=== PATIENT | female | born 1955 | race Caucasian/White ===

== ENCOUNTER 2016-09-30 15:43 | Emergency (ER) | payer OTHER ==
[~2016-09-30] VITALS: Ht 170.2 cm; Wt 91.7 kg
[~2016-09-30 15:43] MED LIST: CIPR500T2 PO; CYMB60CA PO; LISI-360 PO; LORTA5 PO; METR-1 PO; PREM0.622 PO; VESI5TAB PO
[2016-09-30 15:45] VITALS: BP 232/118; PULSE 71; RESP 16; RESP 18; TEMP 98; O2SAT 100; O2SAT 98
[2016-09-30] MEDS ORDERED: SODIUM CHLORIDE 0.9% FLUSH 10 ML FLUSH IV FLUSH PRN (16:00)
[2016-09-30] MEDS ORDERED: ONDANSETRON HCL 4 MG/2 ML VIAL IVP ONE (16:00)
[2016-09-30] MEDS ORDERED: MORPHINE SULFATE 4 MG/ML INJ IV PUSH ONE (16:00)
--- NOTE | 2016-09-30 16:02 | PD ---
HPI Chief Complaint: FALL Time Seen by Provider: 16:02 Travel History International Travel<30 days: No Contact w/Intl Traveler<30days: No History of Present Illness HPI 61-year-old female with a history of hypertension is brought to the emergency department by EMS for evaluation of fall with head trauma. Per EMS report the patient slipped in her kitchen falling backward and hitting her head with loss of consciousness witnessed by family members. The patient states that she had just put tanning lotion on and was getting ready to do yard work outside when she slipped on the tile in her kitchen and fell back hitting her head. States that she remembers hitting her head hard on the tile and blacked out. Per report it was a loss of consciousness for approximately 2 minutes. The patient is complaining of posterior head and neck pain as well as bilateral toe pain. States she was wearing flip-flops when this occurred and that she thinks her toes accidentally got folded downward. She is complaining of shoulder soreness bilaterally. Denies numbness or tingling, weakness, blurred vision, nausea, vomiting, back pain, saddle anesthesia, bowel or bladder incontinence. Denies anticoagulation. No other complaints. PFSH Past Medical History Arthritis: Yes Blood Disorders: No Anxiety: Yes Depression: No Cancer: No Cardiovascular Problems: No Chemotherapy: No Diminished Hearing: No Endocrine: Yes (PARATHYROID BEING ADDRESSED) Glaucoma: No Genitourinary: No Hypertension: Yes Immune Disorder: No Implanted Vascular Access Dvce: Yes Musculoskeletal: Yes ( ) Neurologic: No Psychiatric: Yes (CLAUSTRAPHOBIA) Reproductive: No Respiratory: No Radiation Therapy: No Ovarian Cysts: Yes Tubal Ligation: Yes Past Surgical History Abdominal Surgery: Yes AICD: No Arteriovenous Shunt: No Body Medical Devices: LUMBAR HARDWARE Cardiac Surgery: No Ear Surgery: No Eye Surgery: No Genitourinary Surgery: No Gynecologic Surgery: Yes (TUBAL LIG., HYSTERECTOMY) Hysterectomy: Yes Insulin Pump: No Joint Replacement: Yes (KNEE) Neurologic Surgery: Yes (LUMBAR FUSION) Oral Surgery: No Pacemaker: No Thoracic Surgery: No Other Surgery: Yes (MULTI-LEVEL FUSION BACK SURGERY - DECEMBER [address] KIM) Social History Alcohol Use: Yes (3 TIMES A WEEK) Tobacco Use: No Substance Use: No Allergies-Medications (Allergen,Severity, Reaction): Coded Allergies: Dust (Verified Allergy, Unknown, 04/16/15) Molds and Smuts (Verified Allergy, Unknown, 04/16/15) Uncoded Allergies: DHAVAL (Allergy, Intermediate, 03/27/11) Reported Meds & Prescriptions Reported Meds & Active Scripts Active Naproxen 500 Mg Tab 500 Mg PO BID PRN 7 Days Robaxin (Methocarbamol) 750 Mg Tab 750 Mg PO QID 5 Days Flagyl (Metronidazole) 500 Mg Tab 500 Mg PO Q8HR Ciprofloxacin Hcl 500 Mg Tab 500 Mg PO Q12HR Hydrocodone/Acetaminophen 5 mg/325 mg 1 Tab Tab 1 Tab PO Q4H PRN Reported Lisinopril 10 mg (Lisinopril) 10 Mg Tab 1 Tab PO BID Premarin (Estrogens Conjugated) 0.625 Mg Tab 0.625 Mg PO DAILY Vesicare (Solifenacin) 5 Mg Tab 5 Mg PO BID * SWALLOW TABLET WHOLE * Cymbalta (Duloxetine HCl) 60 Mg Cap 60 Mg PO DAILY Review of Systems Except as stated in HPI: all other systems reviewed are Neg Physical Exam Narrative GENERAL: Well-nourished and well-developed pleasant female patient in no acute distress. Backboarded with cervical collar in place. SKIN: No obvious lacerations or abrasions noted. HEAD: Normocephalic and atraumatic. No bony point tenderness or crepitus noted throughout the scalp and facial bones. EYES: No scleral icterus, injection, or drainage. PERRLA. EOMI. No hyphema present. ENT: No septal hematoma or hemotympanum noted. Oropharynx is clear and the airway is patent. NECK: Supple and the trachea is midline. No obvious deformities, crepitus, or midline tenderness noted. CARDIOVASCULAR: Regular rate and rhythm. RESPIRATORY: Breath sounds are equal bilaterally with no accessory muscle use, wheezing, rhonchi, or crackles. GASTROINTESTINAL: Abdomen is soft, non-tender, and nondistended. MUSCULOSKELETAL: Tenderness to palpation of bilateral first and second toes. DP pulses are 2+ bilaterally. Capillary refills within normal limits. No obvious deformities, swelling, cyanosis, or ecchymosis is present throughout the upper and lower extremities. Patient has full range of motion without any signs of neurovascular compromise. Strength 5/5 upper and lower extremities equal bilaterally. BACK: Nontender without any obvious deformities, bony point tenderness, or crepitus noted throughout the thoracic and lumbar vertebrae. NEUROLOGICAL: Awake, alert, and oriented. Normal speech and gait. Cranial nerves are grossly intact. Data Data Last Documented VS Vital Signs Date Time Temp Pulse Resp B/P Pulse Ox O2 Delivery O2 Flow Rate FiO2 09/30/16 16:46 16 09/30/16 16:15 70 193/100 100 Room Air 09/30/16 15:[address] Brain W/O Iv Contrast(Rout) (09/30/16 16:00) Ct Cerv Spine W/O Contrast (09/30/16 16:00) Foot, Complete (Bit5fpn) (09/30/16 16:00) Foot, Complete ([id number]) (09/30/16 16:00) Iv Access Insert/Monitor (09/30/16 16:00) Ecg Monitoring (09/30/16 16:00) Oximetry (09/30/16 16:00) Ondansetron Inj (Zofran Inj) (09/30/16 16:00) Sodium Chloride 0.9% Flush (Ns Flush) (09/30/16 16:00) Morphine Inj (Morphine Inj) (09/30/16 16:00) Basic Metabolic Panel (Bmp) (09/30/16 16:00) Complete Blood Count With Diff (09/30/16 16:00) Prothrombin Time / Inr (Pt) (09/30/16 16:00) Act Partial Throm Time (Ptt) (09/30/16 16:00) Labs Laboratory Tests Test 09/30/16 16:00 White Blood Count 6.9 TH/MM3 Red Blood Count 3.82 MIL/MM3 Hemoglobin 12.8 GM/DL Hematocrit 36.5 % Mean Corpuscular Volume 95.4 FL Mean Corpuscular Hemoglobin 33.4 PG Mean Corpuscular Hemoglobin 35.0 % Concent Red Cell Distribution Width 13.5 % Platelet Count 182 TH/MM3 Mean Platelet Volume 8.7 FL Neutrophils (%) (Auto) 62.4 % Lymphocytes (%) (Auto) 30.1 % Monocytes (%) (Auto) 6.7 % Eosinophils (%) (Auto) 0.5 % Basophils (%) (Auto) 0.3 % Neutrophils # (Auto) 4.3 TH/MM3 Lymphocytes # (Auto) 2.1 TH/MM3 Monocytes # (Auto) 0.5 TH/MM3 Eosinophils # (Auto) 0.0 TH/MM3 Basophils # (Auto) 0.0 TH/MM3 CBC Comment DIFF FINAL Differential Comment Prothrombin Time 10.6 SEC Prothromb Time International 1.0 RATIO Ratio Activated Partial 26.3 SEC Thromboplast Time Sodium Level 139 MEQ/L Potassium Level 4.0 MEQ/L Chloride Level 105 MEQ/L Carbon Dioxide Level 25.3 MEQ/L Anion Gap 9 MEQ/L Blood Urea Nitrogen 14 MG/DL Creatinine 0.80 MG/DL Estimat Glomerular Filtration 73 ML/MIN Rate Random Glucose 91 MG/DL Calcium Level 8.5 MG/DL [facility] [place] Medical Decision Making Medical Screen Exam Complete: Yes Emergency Medical Condition: Yes Differential Diagnosis Minor head injury versus scalp contusion versus intracranial hemorrhage versus muscle strain versus spasm versus fracture Narrative Course 61-year-old female presents to the emergency department for evaluation of fall with head injury and loss of consciousness. Patient is afebrile. She is initially hypertensive with a blood pressure of 232/118. IV access is obtained , labs drawn and sent. Patient is placed on cardiac telemetry and pulse oximetry monitoring. Patient is administered morphine 2.5 mg IV for pain. Head CT is negative for any acute abnormalities. CT of the cervical spine is negative for any acute abnormalities. X-ray of the feet bilaterally are negative for any acute abnormalities. Labs are unremarkable. Patient's blood pressure is improved to 198/86. She reports improvement of symptoms. She has remained stable and without complaint while here in the emergency department. Patient is given prescriptions for Robaxin and naproxen. She is stable for discharge home. I discussed the case with my attending physician Dr. Vargas who is aware of the patients history, physical examination findings, and treatment plan. Diagnosis Primary Impression: Minor head injury with loss of consciousness Qualified Code: S06.9X1A - Minor head injury with loss of consciousness, with LOC of 30 min or less, initial encounter Additional Impression: Foot contusion Qualified Code: S90.31XA - Contusion of right foot, initial encounter Referrals: Primary Care Physician Patient Instructions: Contusion in Adults (ED), General Instructions, Head Injury (ED) Additional Instructions: Apply ice for 20 minutes on, 20 minutes off. Take medications as prescribed. Follow-up with your Primary Care Physician. Return to the ED for any acute worsening of symptoms. Med/Other Pt SpecificInfo: Prescription(s) given Scripts Naproxen 500 Mg [id number] Mg PO BID PRN (PAIN SCALE 1 TO 10) 7 Days Ref 0 Prov:Jem Vargas MD 09/30/16 Methocarbamol (Robaxin)750 Mg [id number] Mg PO QID 5 Days Ref 0 Prov:Jem Vargas MD 09/30/16 Disposition: 01 DISCHARGE HOME Condition: Stable Regine Hi Sep 30, 2016 16:02
[2016-09-30 16:15] VITALS: BP 193/100; PULSE 70; RESP 16; O2SAT 100
--- NOTE | 2016-09-30 16:28 | RADRPT ---
EXAM DATE/TIME: 09/30/2016 16:15 [facility] COMPARISON: No previous studies available for comparison. INDICATIONS : Fall today, cephalgia. RADIATION DOSE: 39.64 CTDIvol (mGy) MEDICAL HISTORY : Hypertension. SURGICAL HISTORY : Hysterectomy. ENCOUNTER: Initial ACUITY: 1 day PAIN SCALE: 7/10 LOCATION: Bilateral head TECHNIQUE: Multiple contiguous axial images were obtained of the head. Using automated exposure control and adj ustment of the mA and/or kV according to patient size, radiation dose was kept as low as reasonably a chievable to obtain optimal diagnostic quality images. FINDINGS: CEREBRUM: The ventricles are normal for age. There is bilateral cortical atrophy overlying the frontal lobes. N o evidence of midline shift, mass lesion, hemorrhage or acute infarction. No extra-axial fluid colle ctions are seen. POSTERIOR FOSSA: The cerebellum and brainstem are intact. The 4th ventricle is midline. The cerebellopontine angle i s unremarkable. EXTRACRANIAL: The visualized portion of the orbits is intact. SKULL: The calvaria is intact. No evidence of skull fracture. CONCLUSION: 1. Bilateral cortical atrophy overlying the frontal lobes. 2. No acute intracranial pathology. Manpreet Lama MD on September 30, 2016 at 16:26 Board Certified Radiologist. This report was verified electronically.
[2016-09-30 16:30] LABS: AUTOMATED NEUTROPHIL # 4.3 TH/MM3 (1.8-7.7); BASOPHIL % 0.3 % (0.0-2.0); EOSINOPHIL % 0.5 % (0.0-4.0); HEMATOCRIT 36.5 % (35.0-46.0); HEMO FLAGS DIFF FINAL; LYMPH % 30.1 % (9.0-44.0); LYMPHOCYTE # 2.1 TH/MM3 (1.0-4.8); MEAN CELL VOLUME 95.4 FL (80.0-100.0); MEAN CORPUSCULAR HEMOGLOBIN 33.4 PG (27.0-34.0); MONO % 6.7 % (0.0-8.0); NEUT % 62.4 % (16.0-70.0); PLATELET COUNT 182 TH/MM3 (150-450); RED BLOOD COUNT 3.82 MIL/MM3 (4.00-5.30); RED CELL DISTRIBUTION WIDTH 13.5 % (11.6-17.2); WHITE BLOOD COUNT 6.9 TH/MM3 (4.0-11.0)
[2016-09-30 16:40] LABS: APTT (PATIENT) 26.3 SEC (24.3-30.1); PROTHROMBIN TIME - PATIENT 10.6 SEC (9.8-11.6)
--- NOTE | 2016-09-30 16:58 | RADRPT ---
EXAM DATE/TIME: 09/30/2016 16:23 [place] Corrected on: September 30, 2016; [facility] COMPARISON: No previous studies available for comparison. INDICATIONS : Patient slipped and fell today. Complains of medial right foot pain near 1st and 2nd metatarsals. MEDICAL HISTORY : None. SURGICAL HISTORY : None. ENCOUNTER: Initial ACUITY: 1 day PAIN SCORE: 4/10 LOCATION: Right Foot FINDINGS: Three view examination of the right foot demonstrates no soft tissue swelling, dislocation, or fractu re. The tarsal bones appear intact. The interphalangeal and metatarsophalangeal joints are intact. The calcaneus is intact. Bony mineralization is normal. There is some calcifications in the soft t issues just below the calcaneus. CONCLUSION: No acute disease. Manpreet Lama MD on September 30, 2016 at 16:56 Board Certified Radiologist. This report was verified electronically. Manpreet Lama MD on September 30, 2016 at 16:59 Board Certified Radiologist. This report was verified electronically.
--- NOTE | 2016-09-30 16:58 | RADRPT ---
EXAM DATE/TIME: 09/30/2016 16:15 [facility] COMPARISON: No previous studies available for comparison. INDICATIONS : Fall today, neck pain. RADIATION DOSE: 18.67 CTDIvol (mGy) MEDICAL HISTORY : Hypertension. SURGICAL HISTORY : Hysterectomy. ENCOUNTER: Initial ACUITY: 1 day PAIN SCALE: 7/10 LOCATION: Bilateral neck TECHNIQUE: Volumetric scanning of the cervical spine was performed. Multiplanar reconstructions in the sagittal, coronal and oblique axial planes were performed. Using automated exposure control and adjustment o f the mA and/or kV according to patient size, radiation dose was kept as low as reasonably achievable to obtain optimal diagnostic quality images. FINDINGS: VERTEBRAE: Normal vertebral body height. No acute bony fracture. There are degenerative changes at C5-6 and C6-7 with disc space narrowing. ALIGNMENT: No evidence of subluxation. C2-C3: The bony spinal canal is normal in size. No evidence of disc bulge or herniation. The neural forami na are bilaterally patent. C3-C4: The bony spinal canal is normal in size. No evidence of disc bulge or herniation. The neural forami na are bilaterally patent. Facet arthritis on the left. C4-C5: The bony spinal canal is normal in size. No evidence of disc bulge or herniation. The neural forami na are bilaterally patent. Facet arthritis on the right. C5-C6: Broad-based bulging with disc osteophyte complex. The neural foramina are patent. C6-C7: The bony spinal canal is normal in size. No evidence of disc bulge or herniation. The neural forami na are bilaterally patent. C7-T1: The bony spinal canal is normal in size. No evidence of disc bulge or herniation. The neural forami na are bilaterally patent. Facet arthritis on the right. CONCLUSION: 1. No acute bony fracture. 2. Primary bony degenerative changes, disc degeneration and disc space narrowing at C5-6 and C6-7. Manpreet Lama MD on September 30, 2016 at 16:53 Board Certified Radiologist. This report was verified electronically.
--- NOTE | 2016-09-30 16:59 | RADRPT ---
EXAM DATE/TIME: 09/30/2016 16:25 [facility] COMPARISON: No previous studies available for comparison. INDICATIONS : Patient slipped and fell today. Complains of medial left foot pain near 1st and 2nd metatarsals. MEDICAL HISTORY : None. SURGICAL HISTORY : None. ENCOUNTER: Initial ACUITY: 1 day PAIN SCORE: 4/10 LOCATION: Left Foot FINDINGS: Three view examination of the left foot demonstrates no soft tissue swelling, dislocation, or fractur e. The tarsal bones appear intact. The interphalangeal and metatarsophalangeal joints are intact. The calcaneus is intact. Bony mineralization is normal. There is some calcifications in the soft ti ssues just below the calcaneus. CONCLUSION: No acute fracture or joint dislocation. Manpreet Lama MD on September 30, 2016 at 16:57 Board Certified Radiologist. This report was verified electronically.
[2016-09-30 17:00] VITALS: BP 193/96; PULSE 86; RESP 16; O2SAT 100
[2016-09-30 17:02] LABS: BICARBONATE 25.3 MEQ/L (21.0-32.0)
[2016-09-30] MEDS ORDERED: ROBA750T PO (17:20)
[2016-09-30] MEDS ORDERED: NAPR500T PO (17:20)
== END 2016-09-30 17:51 | disposition home or self-care (01) ==
LOC: NEPC 15:43
DX: S06.9X1A Unspecified intracranial injury with loss of consciousness of 30 minutes or less, initial encounter (principal); S90.31XA Contusion of right foot, initial encounter; I10 Essential (primary) hypertension; W01.0XXA Fall on same level from slipping, tripping and stumbling without subsequent striking against object, initial encounter; Y92.000 Kitchen of unspecified non-institutional (private) residence as the place of occurrence of the external cause
CPT/HCPCS: 70450; 72125; 73630; 80048; 85025; 85610; 85730; 96374; 96375; 99284; J2270; J2405

== ENCOUNTER 2017-03-27 20:03 | Emergency (ER) | payer OTHER ==
[~2017-03-27] VITALS: Ht 170.2 cm; Wt 82.0 kg
[~2017-03-27 20:03] MED LIST changes: +NAPR500T PO; +ROBA750T PO
[2017-03-27 20:06] VITALS: BP 153/87; PULSE 101; RESP 20; TEMP 97.9; O2SAT 98
[2017-03-27] MEDS ORDERED: SODIUM CHLORIDE 0.9% FLUSH 10 ML FLUSH IV FLUSH PRN (21:00)
--- NOTE | 2017-03-27 21:18 | PD ---
HPI . Abdominal swelling Chief Complaint: Abdominal Pain Time Seen by Provider: 20:49 Travel History International Travel<30 days: No Contact w/Intl Traveler<30days: No Traveled to known affect area: No History of Present Illness HPI This patient presents with chief complaint of a swollen abdomen. Onset was this morning. She states she had a little bit of abdominal discomfort last night and that the swelling started today. She states that it has been getting progressively worse. She is unable to fasten her parents and due to the swelling. She does have some associated discomfort. She rates her pain 10/10 but states that it is markedly improved from earlier. She states that she took hydrocodone good relief of her pain. Pain is exacerbated by patient and by fastening her pants. She reports an associated poor appetite today but otherwise has no associated symptoms. Specifically, no fever, no vomiting, no urinary tract symptoms. She has not noted any change in the color of her urine. She reports a previous similar history. She states that she developed ascites several years ago and that the ascitic fluid was drained surgically. The etiology of the ascites was never discovered. She has no known history of liver problems. She reports a couple of milder episodes since then. She further states that her sister has the same thing and that the etiology of the sisters ascites is also as yet undetermined. PFSH Past Medical History Arthritis: Yes Blood Disorders: No Anxiety: Yes Depression: No Cancer: No Cardiovascular Problems: No Chemotherapy: No Diminished Hearing: No Endocrine: Yes (PARATHYROID BEING ADDRESSED) Glaucoma: No Genitourinary: No Hypertension: Yes Immune Disorder: No Implanted Vascular Access Dvce: Yes Musculoskeletal: Yes ( ) Neurologic: No Psychiatric: Yes (CLAUSTRAPHOBIA) Reproductive: No Respiratory: No Radiation Therapy: No Tetanus Vaccination: Unknown ?: Not Menopausal: Yes Ovarian Cysts: Yes Tubal Ligation: Yes Past Surgical History Abdominal Surgery: Yes AICD: No Arteriovenous Shunt: No Body Medical Devices: LUMBAR HARDWARE Cardiac Surgery: No Ear Surgery: No Eye Surgery: No Genitourinary Surgery: No Gynecologic Surgery: Yes Hysterectomy: Yes Insulin Pump: No Joint Replacement: Yes (KNEE) Neurologic Surgery: Yes (LUMBAR FUSION, JUDY) Oral Surgery: No Pacemaker: No Thoracic Surgery: No Other Surgery: Yes (MULTI-LEVEL FUSION BACK SURGERY - DECEMBER [address] KIM) Social History Alcohol Use: Yes (3 TIMES A WEEK) Tobacco Use: No Substance Use: No Allergies-Medications (Allergen,Severity, Reaction): Coded Allergies: house dust (Unverified Allergy, Unknown, 02/06/17) mold (Unverified Allergy, Unknown, 02/06/17) Uncoded Allergies: DHAVAL (Allergy, Intermediate, 03/27/11) Reported Meds & Prescriptions Reported Meds & Active Scripts Active Naproxen 500 Mg Tab 500 Mg PO BID PRN 7 Days Robaxin (Methocarbamol) 750 Mg Tab 750 Mg PO QID 5 Days Flagyl (Metronidazole) 500 Mg Tab 500 Mg PO Q8HR Ciprofloxacin Hcl 500 Mg Tab 500 Mg PO Q12HR Hydrocodone/Acetaminophen 5 mg/325 mg 1 Tab Tab 1 Tab PO Q4H PRN Reported Lisinopril 10 mg (Lisinopril) 10 Mg Tab 1 Tab PO BID Premarin (Estrogens Conjugated) 0.625 Mg Tab 0.625 Mg PO DAILY Vesicare (Solifenacin) 5 Mg Tab 5 Mg PO BID * SWALLOW TABLET WHOLE * Cymbalta (Duloxetine HCl) 60 Mg Cap 60 Mg PO DAILY Review of Systems Except as stated in HPI: all other systems reviewed are Neg General / Constitutional: No: Fever, Chills Cardiovascular: No: Chest Pain or Discomfort Respiratory: No: Shortness of Breath Gastrointestinal: Positive: Abdominal Pain, Loss of Appetite, No: Nausea, Vomiting, Diarrhea Genitourinary: No: Urgency, Frequency, Dysuria Physical Exam Narrative GENERAL: Patient is awake and alert and in no acute distress. SKIN: warm/dry. No jaundice. HEAD: Normocephalic. Atraumatic. EYES: Pupils equal and round. No scleral icterus. No injection or drainage. ENT: No nasal bleeding or discharge. Mucous membranes pink and moist. NECK: Trachea midline. Full range of motion without pain.. CARDIOVASCULAR: Regular rate and rhythm. Heart sounds are normal. RESPIRATORY: No accessory muscle use. Clear to auscultation. Breath sounds equal bilaterally. GASTROINTESTINAL: Abdomen soft. Distended. Bowel sounds present. Diffusely tender. No caput medusa noted. She does have some scattered bruises to the abdominal wall which she states is from her 2-year-old grandchild jumping on her. MUSCULOSKELETAL: No obvious deformities. NEUROLOGICAL: Awake and alert. No obvious cranial nerve deficits. Motor grossly within normal limits. Normal speech. PSYCHIATRIC: Appropriate mood and affect; insight and judgment normal. Data Data Last Documented VS Vital Signs Date Time Temp Pulse Resp B/P (MAP) Pulse Ox O2 Delivery O2 Flow Rate FiO2 03/27/17 20:06 97.9 101 20 153/87 (109) 98 Orders Orders Complete Blood Count With Diff (03/27/17 20:49) Comprehensive Metabolic Panel (03/27/17 20:49) Prothrombin Time / Inr (Pt) (03/27/17 20:49) Act Partial Throm Time (Ptt) (03/27/17 20:49) Urinalysis - C+S If Indicated (03/27/17 20:49) Ct Abd/Pel W Iv Contrast(Rout) (03/27/17 20:49) Iv Access Insert/Monitor (03/27/17 20:49) Sodium Chloride 0.9% Flush (Ns Flush) (03/27/17 21:00) Iohexol 350 Inj (Omnipaque 350 Inj) (03/27/17 22:50) Labs Laboratory Tests Test 03/27/17 21:15 White Blood Count 10.0 TH/MM3 Red Blood Count 3.97 MIL/MM3 Hemoglobin 13.2 GM/DL Hematocrit 39.2 % Mean Corpuscular Volume 98.7 FL Mean Corpuscular Hemoglobin 33.2 PG Mean Corpuscular Hemoglobin Concent 33.6 % Red Cell Distribution Width 13.0 % Platelet Count 157 TH/MM3 Mean Platelet Volume 8.5 FL Neutrophils (%) (Auto) 70.0 % Lymphocytes (%) (Auto) 22.6 % Monocytes (%) (Auto) 6.8 % Eosinophils (%) (Auto) 0.4 % Basophils (%) (Auto) 0.2 % Neutrophils # (Auto) 7.0 TH/MM3 Lymphocytes # (Auto) 2.3 TH/MM3 Monocytes # (Auto) 0.7 TH/MM3 Eosinophils # (Auto) 0.0 TH/MM3 Basophils # (Auto) 0.0 TH/MM3 CBC Comment DIFF FINAL Differential Comment Prothrombin Time 10.3 SEC Prothromb Time International Ratio 0.9 RATIO Activated Partial Thromboplast Time 25.9 SEC Urine Color YELLOW Urine Turbidity HAZY Urine pH 5.5 Urine Specific [place] 1.034 Urine Protein TRACE mg/dL Urine Glucose (UA) NEG mg/dL Urine Ketones TRACE mg/dL Urine Occult Blood NEG Urine Nitrite NEG Urine Bilirubin NEG Urine Urobilinogen 2.0 MG/DL Urine Leukocyte Esterase NEG Urine RBC 1 /hpf Urine WBC 2 /hpf Urine Squamous Epithelial Cells 6 /hpf Urine Bacteria RARE /hpf Urine Hyaline Casts 1 /lpf Urine Mucus FEW /lpf Microscopic Urinalysis Comment CULT NOT INDICATED Blood Urea Nitrogen 24 MG/DL Creatinine 0.98 MG/DL Random Glucose 96 MG/DL Total Protein 6.1 GM/DL Albumin 3.2 GM/DL Calcium Level 8.6 MG/DL Alkaline Phosphatase 41 U/L Aspartate Amino Transf (AST/SGOT) 18 U/L Alanine Aminotransferase (ALT/SGPT) 14 U/L Total Bilirubin 0.3 MG/DL Sodium Level 135 MEQ/L Potassium Level 4.2 MEQ/L Chloride Level 103 MEQ/L Carbon Dioxide Level 24.2 MEQ/L Anion Gap 8 MEQ/L Estimat Glomerular Filtration Rate 58 ML/MIN MDM Medical Decision Making Medical Screen Exam Complete: Yes Emergency Medical Condition: Yes Medical Record Reviewed: Yes (patient was taken to the operating room in 2014 for a possible intra-abdominal abscess. It was found to be ascitic fluid. She has a history of hypertension and hyperlipidemia.) Differential Diagnosis Differential diagnosis of abdominal pain includes but is not limited to gastritis, pancreatitis, hepatitis, gastroenteritis, gallbladder disease, constipation, urinary retention, UTI, peptic ulcer disease, diverticulitis or appendicitis Narrative Course This patient presents for abdominal bloating and pain. She has a history of ascites. She is followed at the [facility] doctor Ramos. CBC & BMP Diagram 03/27/17 21:15 Total Protein 6.1 L, Albumin 3.2 L, Calcium Level 8.6, Alkaline Phosphatase 41 L , Aspartate Amino Transf (AST/SGOT) 18, Alanine Aminotransferase (ALT/SGPT) 14, Total Bilirubin 0.3 CT: 1. Mild ascites. 2. Mild thickening of the terminal ileum. Inflammatory conditions including Crohn's can be considered. 3. Mild hepatic steatosis. 4. Stable hypodensities in the liver likely related to cysts or hemangiomas. The history, exam, diagnostic testing, and current condition do not suggest any significant pathology to warrant further testing, continued ED treatment, admission, or surgical evaluation at this point. No EMC was found. The patient 's condition is stable and appropriate for discharge. Diagnosis Primary Impression: Diffuse abdominal pain Additional Impression: Abdominal bloating Referrals: Beau Beasley MD 1 day Patient Instructions: Abdominal Pain (ED), General Instructions Med/Other Pt SpecificInfo: Prescription(s) given Scripts Dicyclomine (Bentyl) 10 Mg Cap 20 MG PO QID for Bowel Management, #10 CAP 0 Refills Prov: Lilia Clifton MD 03/27/17 Disposition: 01 DISCHARGE HOME Condition: Stable Lilia Clifton MD Mar 27, 2017 21:18
[2017-03-27 21:42] LABS: BACTERIA, URINE RARE /hpf; BLOOD, URINE NEG (NEG); COMMENT (UR) CULT NOT INDICATED; CULTURE IF INDICATED CULT NOT INDICATED; GLUCOSE,URINE NEG (NEG); HYALINE CAST, URINE 1 /lpf (RARE); KETONE, URINE TRACE mg/dL (NEG); MUCUS URINE FEW /lpf (OCC); NITRITE,URINE NEG (NEG); PH, URINE 5.5 (5.0-8.5); SQUAMOUS EPITHELIAL CELL URINE 6 /hpf (0-5); URINE COLOR YELLOW (YELLW/STRAW)
[2017-03-27 21:44] LABS: BASOPHIL % 0.2 % (0.0-2.0); EOSINOPHIL % 0.4 % (0.0-4.0); HEMATOCRIT 39.2 % (35.0-46.0); HEMO FLAGS DIFF FINAL; LYMPH % 22.6 % (9.0-44.0); LYMPHOCYTE # 2.3 TH/MM3 (1.0-4.8); MEAN CELL VOLUME 98.7 FL (80.0-100.0); MEAN CORPUSCULAR HEMOGLOBIN 33.2 PG (27.0-34.0); MEAN CORPUSCULAR HGB CONC 33.6 % (32.0-36.0); MONO % 6.8 % (0.0-8.0); PLATELET COUNT 157 TH/MM3 (150-450); RED BLOOD COUNT 3.97 MIL/MM3 (4.00-5.30)
[2017-03-27 21:54] LABS: APTT (PATIENT) 25.9 SEC (24.3-30.1); INTERNATIONAL NORMALIZED RATIO 0.9 RATIO; PROTHROMBIN TIME - PATIENT 10.3 SEC (9.8-11.6)
[2017-03-27 22:01] LABS: ALT (GPT) 14 U/L (10-53)
[2017-03-27 22:03] LABS: ALKALINE PHOSPHATASE 41 U/L (45-117); TOTAL BILIRUBIN ADULT 0.3 MG/DL (0.2-1.0)
[2017-03-27 22:17] LABS: ANION GAP 8 MEQ/L (5-15); AST (GOT) 18 U/L (15-37); BICARBONATE 24.2 MEQ/L (21.0-32.0); BLOOD UREA NITROGEN 24 MG/DL (7-18); CHLORIDE 103 MEQ/L (98-107); GLOMERULAR FILTRATION RATE 58 ML/MIN (>89); POTASSIUM 4.2 MEQ/L (3.5-5.1); SODIUM (NA) 135 MEQ/L (136-145)
[2017-03-27] MEDS ORDERED: IOHEXOL 350 MG/ML 10 ML VIAL (for RAD DIAG) IVCONTRAST ONE (22:50)
--- NOTE | 2017-03-27 23:45 | RADRPT ---
EXAM DATE/TIME: 03/27/2017 22:39 [place] COMPARISON: CT ABDOMEN & PELVIS W CONTRAST, April 16, 2015, 9:42. INDICATIONS : Abdominal distention. IV CONTRAST: 100 cc Omnipaque 350 (iohexol) IV ORAL CONTRAST: No oral contrast ingested. RADIATION DOSE: 10.49 CTDIvol (mGy) MEDICAL HISTORY : Hypertension. Ovarian cyst. SURGICAL HISTORY : Tubal ligation. Hysterectomy.Fusion, lumbar. ENCOUNTER: Initial ACUITY: 1 day PAIN SCALE: 10/10 LOCATION: Bilateral abdomen TECHNIQUE: Volumetric scanning of the abdomen and pelvis was performed. Using automated exposure control and ad justment of the mA and/or kV according to patient size, radiation dose was kept as low as reasonably achievable to obtain optimal diagnostic quality images. DICOM format image data is available electro nically for review and comparison. FINDINGS: LOWER LUNGS: The visualized lower lungs are clear. LIVER: There is minimal decreased attenuation of the liver. There are several hypodense areas seen in the li lory with the largest one measuring 1 cm at the lateral segmental left lobe of the liver. These were p resent previously. Biliary duct dilatation is not seen. Calcified gallstones are not present. SPLEEN: Normal size without lesion. PANCREAS: Within normal limits. KIDNEYS: Normal in size and shape. There is no stone or hydronephrosis. Small subcentimeter left renal cysts are seen. ADRENAL GLANDS: Within normal limits. VASCULAR: There is no aortic aneurysm. BOWEL/MESENTERY: There is a mild amount ascites seen in the peritoneal cavity. There is some thickening of the termina l ileum. There is scattered colonic diverticula. No inflammatory changes seen. ABDOMINAL WALL: Within normal limits. RETROPERITONEUM: There is no lymphadenopathy. BLADDER: No wall thickening or mass. REPRODUCTIVE: There is a 5.5 x 4.2 cm rounded area of density seen at the vaginal cuff region with central lucency likely related to the uterine cervix. The uterine body is absent. INGUINAL: There is no lymphadenopathy or hernia. MUSCULOSKELETAL: Surgical hardware seen in the lumbar spine. CONCLUSION: 1. Mild ascites. 2. Mild thickening of the terminal ileum. Inflammatory conditions including Crohn's can be considered . 3. Mild hepatic steatosis. 4. Stable hypodensities in the liver likely related to cysts or hemangiomas. Joaquin Hayes MD on March 27, 2017 at 23:37 Board Certified Radiologist. This report was verified electronically.
[2017-03-27] MEDS ORDERED: DICY10 PO (23:56)
[2017-03-28] MEDS ORDERED: DICYCLOMINE HCL 10 MG CAP PO ONE
== END 2017-03-28 01:03 | disposition home or self-care (01) ==
LOC: NEPC 20:03
DX: R10.84 Generalized abdominal pain (principal); R14.0 Abdominal distension (gaseous)
CPT/HCPCS: 74177; 80053; 81001; 85025; 85610; 85730; 99285; Q9967